=== PATIENT | male | born 1960 | race Caucasian/White ===

== ENCOUNTER 2017-09-26 16:45 | Emergency (ER) | payer MEDICARE, MEDICAID ==
[~2017-09-26] VITALS: Ht 182.9 cm; Wt 103.4 kg
[~2017-09-26 16:45] MED LIST: ALB5IS NEB; AMIO200T33 PO; ASPI81CH43 PO; AZIT250T8 PO; DULO60CA PO; ESOM40CA39 PO; FINA5TAB4 PO; FLUT110A INH; FURO40TA PO; Ipratropium Bromide NEB; LORA1TAB12 PO; MEMA28CA OR; METO50TA7 PO; OLAN10TA23 PO; POTA10TA51 PO; QUE100T PO; RASA1TAB PO; ROPI1TAB22 PO; TEMA15CA91 PO
[2017-09-26 19:51] LABS: Red Blood Cells 3.94 10^6/uL (4.5-5.90); White Blood Cell 9.4 10^3/uL (4.4-10.8)
[2017-09-26 19:53] LABS: Hematocrit 30.8 % (41.0-53.0); Mean Corpuscular Hemoglobin 25.4 pg (28.0-32.0); Mean Corpuscular Hgb Conc. 32.5 g/dL (32.0-36.0); Mean Corpuscular Volume 78.2 fL (80.0-100.0); Platelet Count (auto) 475 10^3/uL (140-450); Red Cell Distribution Width 18.5 % (11.8-14.3)
[2017-09-26 20:01] LABS: Band Neutrophils % (manual) 0; Basophils % (manual) 0 (0.0-2.0); Blast Cells 0; Promyelocytes % 0; Reactive Lymphocytes 0
[2017-09-26 20:06] LABS: Alanine Aminotransferase 13 U/L (16-61); Albumin 2.9 g/dL (3.4-5.0); Anion Gap 6 (5-15); Aspartate Aminotransferase 17 U/L (15-37); BUN/Creatinine Ratio 17.3; Blood Urea Nitrogen 45 mg/dL (7-18); Calcium 9.5 mg/dL (8.5-10.1); Carbon Dioxide 28 mmol/L (21-32); Chloride 105 mmol/L (98-107); GFR African American 33 mL/min; GFR Non-African American 27 mL/min; Glucose 97 mg/dL (74-106); Magnesium 2.1 mg/dL (1.6-2.6); Potassium 3.8 mmol/L (3.5-5.1); Sodium 139 mmol/L (136-145)
[2017-09-26 20:18] LABS: Alkaline Phosphatase 72 U/L (45-117); Bilirubin, Total 0.2 mg/dL (0.2-1.0); Total Protein 7.4 g/dL (6.4-8.2)
[2017-09-26 20:28] LABS: Eosinophils % (manual) 5 (0-7); Lymphocytes % (manual) 30 (10.0-50.0); Metamyelocytes % 2; Monocytes % (manual) 8 (0-12); Myelocytes % 2
[2017-09-26 22:46] VITALS: BP 114/75
== END 2017-09-26 23:54 | disposition home or self-care (01) ==
LOC: EDBD 16:45 → ER 16:45
DX: M54.17 Radiculopathy, lumbosacral region (principal); M54.42 Lumbago with sciatica, left side; M86.9 Osteomyelitis, unspecified; I25.10 Atherosclerotic heart disease of native coronary artery without angina pectoris; I11.0 Hypertensive heart disease with heart failure; I50.9 Heart failure, unspecified; J44.9 Chronic obstructive pulmonary disease, unspecified; E11.9 Type 2 diabetes mellitus without complications; Z90.49 Acquired absence of other specified parts of digestive tract; F17.210 Nicotine dependence, cigarettes, uncomplicated; Z79.899 Other long term (current) drug therapy; Z79.82 Long term (current) use of aspirin
CPT/HCPCS: 36415; 71045; 72131; 73700; 80053; 83605; 83735; 83880; 84484; 85007; 85027; 87040; 87077; 87186; 87205; 93005